=== PATIENT | female | born 1955 | race Hispanic/Latino ===

== ENCOUNTER 2017-04-06 19:42 | Emergency (ER) | payer BC, OTHER ==
[~2017-04-06 19:42] MED LIST: AMLO10TA4 PO; OMEP20TA2 PO
[2017-04-06] MEDS ORDERED: IBUPROFEN 200 MG TAB ONE (21:59)
[2017-04-06] MEDS ORDERED: IBUPROFEN 400 MG TABLET ONE (21:59)
[2017-04-06] MEDS ORDERED: CYCLOBENZAPRINE HCL 10 MG TABLET ONE (22:00)
== END 2017-04-06 22:05 | disposition home or self-care (01) ==
LOC: EDH 19:42
DX: S16.1XXA Strain of muscle, fascia and tendon at neck level, initial encounter (principal); S09.93XA Unspecified injury of face, initial encounter; I10 Essential (primary) hypertension; Z90.49 Acquired absence of other specified parts of digestive tract; Z98.890 Other specified postprocedural states; X58.XXXA Exposure to other specified factors, initial encounter; Y93.89 Activity, other specified; Y92.89 Other specified places as the place of occurrence of the external cause; Y99.8 Other external cause status
CPT/HCPCS: 70450; 72125

== ENCOUNTER → 2019-11-30 | Outpatient (CLI) | payer OTHER | END | disposition home or self-care (01) | LOC: RAH 15:24 | DX: M17.0 Bilateral primary osteoarthritis of knee (principal); M81.0 Age-related osteoporosis without current pathological fracture | CPT/HCPCS: 73562 ==

== ENCOUNTER 2021-11-15 14:16 | Emergency (ER) | payer MEDICARE, OTHER ==
[~2021-11-15] VITALS: Ht 144.8 cm; Wt 81.6 kg
[2021-11-15] MEDS ORDERED: CYCLOBENZAPRINE HCL 10 MG TABLET PO ONE (15:00)
[2021-11-15] MEDS ORDERED: HYDROCODONE/ACETAMINOPHEN 10/325 MG TAB PO ONE (15:00)
[2021-11-15] MEDS ORDERED: CYCL10TA16 PO (15:09)
[2021-11-15] MEDS ORDERED: TRAM1TAB2 PO (15:09)
[2021-11-15 15:12] VITALS: BP 136/59
== END 2021-11-15 15:18 | disposition home or self-care (01) ==
LOC: EDH 14:16
DX: S20.211A Contusion of right front wall of thorax, initial encounter (principal); I10 Essential (primary) hypertension; Z88.5 Allergy status to narcotic agent; E66.9 Obesity, unspecified; Z79.899 Other long term (current) drug therapy; Z68.38 Body mass index [BMI] 38.0-38.9, adult; W18.39XA Other fall on same level, initial encounter; Y93.89 Activity, other specified; Y92.89 Other specified places as the place of occurrence of the external cause; Y99.8 Other external cause status
CPT/HCPCS: 71101

== ENCOUNTER 2022-11-06 19:00 | Emergency (ER) | payer MEDICARE ==
[~2022-11-06] VITALS: Ht 152.4 cm; Wt 85.7 kg
[~2022-11-06 19:00] MED LIST changes: +CYCL10TA16 PO; +TRAM1TAB2 PO
[2022-11-07] MEDS ORDERED: KETOROLAC 10 MG TABLET PO SCH
[2022-11-07 00:17] VITALS: BP 103/65; PULSE 78; RESP 16; O2SAT 98
[2022-11-07] MEDS ORDERED: IBUP-2070 PO (01:03)
== END 2022-11-07 01:14 | disposition home or self-care (01) ==
LOC: EDH 19:00
DX: S52.502A Unspecified fracture of the lower end of left radius, initial encounter for closed fracture (principal); S42.402A Unspecified fracture of lower end of left humerus, initial encounter for closed fracture; E66.9 Obesity, unspecified; I10 Essential (primary) hypertension; Z79.899 Other long term (current) drug therapy; Z88.5 Allergy status to narcotic agent; W18.39XA Other fall on same level, initial encounter; Y93.89 Activity, other specified; Y92.89 Other specified places as the place of occurrence of the external cause; Y99.8 Other external cause status
CPT/HCPCS: 29105; 29125; 73080; 73090; 73130